=== PATIENT | female | born 1990 | race Caucasian/White ===

== ENCOUNTER 2020-08-07 15:33 | Outpatient (REF) | payer OTHER, SELFPAY | END 2020-08-07 15:34 | disposition home or self-care (01) | LOC: HO.LAB 15:33 | PROVIDERS: PCP Internal Medicine; Visit Provider Internal Medicine | DX: Z20.828 Contact with and (suspected) exposure to other viral communicable diseases (principal) | CPT/HCPCS: 36415; C9803; U0003 ==

== ENCOUNTER 2020-08-21 15:51 | Emergency (ER) | payer OTHER, SELFPAY ==
[2020-08-21 16:22] VITALS: BP 127/81; PULSE 92; RESP 22; TEMP 35.9; O2SAT 100; BMI 25.7
--- NOTE | 2020-08-21 16:59 | XR_ITS ---
EXAMINATION: PORTABLE CHEST 1 VIEW CLINICAL INFORMATION: cough . COMPARISON: 03/28/2020. TECHNIQUE: Portable frontal view of the chest was obtained. FINDINGS: The lungs are well expanded. No focal infiltrate, effusion, edema, or pneumothorax. Cardiac and mediastinal silhouettes are within normal limits for technique. No acute bony abnormality seen. XR/XR chest 1V IMPRESSION: No evidence of acute disease.
--- NOTE | 2020-08-21 16:59 | ED_ITS ---
HPI - General Adult General Chief complaint: Dyspnea Stated complaint: Difficulty breathing Time Seen by Provider: 08/21/20 16:38 Source: patient Mode of arrival: ambulatory Limitations: no limitations History of Present Illness HPI narrative: Patient comes emergency room complaining of anxiety. Patient states that when she gets anxious, she gets short of breath. Patient states making her anxious is that she was diagnosed with COVID and she still having cough. Patient denies headache, no shortness of breath except when she feels anxious, no fever, no body aches. Patient's and children are recovering from COVID as well. complaint: Anxiety Related Data Previous Rx's Medication Instructions Recorded albuterol sulfate 90 mcg/actuation 1 inh INHALATION QID PRN #8.5 g 08/17/20 aerosol inhaler azithromycin 250 mg tablet 250 mg PO DAILY 5 Days #5 tab 08/17/20 Allergies Allergy/AdvReac Type Severity Reaction Status Date / Time No Known Allergies [NKA] Allergy Unknown N Verified 08/21/20 16:22 Review of Systems Review of Systems: Constitutional : No Weight loss, No Fever, No Chills, No Night Sweats, No Fatigue, No Malaise ENT/Mouth : No Hearing loss, No Ear Pain, No Nasal Congestion, No Sinus Pain, No Hoarseness, No sore throat, No Rhinorrhea, No Swallowing Difficulty Eyes: No Eye Pain, No Swelling, No Redness, No Foreign Body, No Discharge, No Vision Changes Cardiovascular : No Chest Pain, No SOB, No Dyspnea on Exertion, No Orthopnea, No Edema, No Palpitations Respiratory : Complaining of dry Cough, No Sputum, No Wheezing, No Smoke Exposure, No Dyspnea Gastrointestinal : No Nausea, No Vomiting, No Diarrhea, No Constipation, No abdominal Pain, No Hematochezia, No Melena Genitourinary : no irregular bleeding, No Dysuria, No Urinary Frequency, No Hematuria, No Urinary Incontinence, No Urgency, No Flank Pain, No Urinary Flow Changes, No Hesitancy Musculoskeletal : No joint pain, No Myalgias, No Joint Swelling Skin : No Skin Lesions, No rash Neuro : No Weakness, No Numbness, No Paresthesias, No Loss of Consciousness, No Dizziness, No Headache Psych : Playing of anxiety , No Depression, No SI/HI/AH/VH, No Social Issues, Heme/Lymph: No Bruising, No Bleeding,No Lymphadenopathy Endocrine : No Polyuria, No Polydipsia, No Temperature Intolerance [facility] Past Medical History Medical History Healthy adult Social History Social History Advance Directives: No Advance Directives Information Provided: No Physical Exam Vital Signs: Vital Signs: Last Vital Signs Temp 96.6 F L 08/21/20 16:22 Pulse 92 08/21/20 16:22 Resp 22 H 08/21/20 16:22 BP 127/81 08/21/20 16:22 Pulse Ox 100 08/21/20 16:22 Body Mass Index 25.7 Appearance: Alert. Oriented X3. No acute distress. Eyes: Pupils equal, round and reactive to light. ENT: Pharynx normal. Neck: Normal inspection. Neck supple. No lymph nodes noted. No crepitus CVS: Normal heart rate and rhythm. Pulses normal. Normal S1 and S2 Respiratory: No respiratory distress. Breath sounds normal. No Wheezing. No rales Abdomen: Soft and nontender. No rigidity. No distention. good BS x4 Skin: Skin warm and dry. Normal skin color. Normal skin turgor. Extremities: No lower extremity edema. No lower extremity edema. No Lacerations. No Rash Neuro: Oriented X 3. No motor deficit. No sensory deficit. Moving all extermities. No slurred speech. Course Course Course Narrative: Patient's x-rays are normal, patient COVID results pending. Discharge Plan Discharge Clinical Impression: Cough Patient Disposition: Home, Self-Care Instructions: Acute Cough (ED) Additional Instructions: You were tested for COVID-19, if you test positive, you will receive a phone call within 72 hours. You may also signed in to [facility] portal and review results which may be available sooner. Please follow-up with your primary care physician tomorrow. If you have any worsening or new symptoms, please return to the emergency room or call 911 Prescriptions: No Action azithromycin [Zithromax Z-Nicola] 250 mg tablet 250 mg PO DAILY 5 Days Qty: 5 RF: 0 albuterol sulfate [Ventolin HFA] 90 mcg/actuation HFA aerosol inhaler 1 inh inhalation QID PRN (Reason: shortness of breath or wheezing) Qty: 8.5 RF: 1
[2020-08-21 18:19] LABS: COVID-19 Test Positive (Negative)
== END 2020-08-21 18:09 | disposition home or self-care (01) ==
PROVIDERS: Emergency Provider Emergency Medicine; PCP Internal Medicine
DX: R05 Cough (principal); Z86.16 Personal history of COVID-19
CPT/HCPCS: 36415; 71045; 87635; 99283

== ENCOUNTER 2020-09-25 23:49 | Emergency (ER) | payer OTHER, SELFPAY | END 2020-09-26 00:48 | disposition left against medical advice (07) | PROVIDERS: Emergency Provider Emergency Medicine; PCP Internal Medicine | DX: T14.90XA Injury, unspecified, initial encounter (principal); X58.XXXA Exposure to other specified factors, initial encounter; Y93.9 Activity, unspecified; Y92.9 Unspecified place or not applicable; Y99.9 Unspecified external cause status ==

== ENCOUNTER 2021-05-06 10:43 | Outpatient (REF) | payer OTHER, SELFPAY ==
[2021-05-06 11:14] LABS: COVID-19 Test Negative (Negative)
== END 2021-05-06 10:44 | disposition home or self-care (01) ==
LOC: HO.LAB 10:43
PROVIDERS: PCP Internal Medicine; Visit Provider Internal Medicine
DX: Z20.822 Contact with and (suspected) exposure to COVID-19 (principal)
CPT/HCPCS: 36415; 87635

== ENCOUNTER 2021-08-22 19:33 | Emergency (ER) | payer OTHER, SELFPAY ==
--- NOTE | 2021-08-22 | ECG_ITS ---
Test Reason : CHEST PAIN Blood Pressure : / mmHG Vent. Rate : 085 BPM Atrial Rate : 085 BPM P-R Int : 184 ms QRS Dur : 094 ms QT Int : 356 ms P-R-T Axes : 048 -11 022 degrees QTc Int : 423 ms Normal sinus rhythm Normal ECG When compared with ECG of 28-MAR-2020 00:00, No significant change was found Referred By: Osei Morales Electronically Signed By:Kristofer Vaz
--- NOTE | ~2021-08-22 | XR_ITS ---
EXAMINATION: XR CHEST CLINICAL INFORMATION: Chest pain COMPARISON: Chest 08/21/2020 TECHNIQUE: 2 views of the chest were obtained. FINDINGS: No significant abnormality is noted involving the heart, lungs, mediastinum, bony thorax or soft tissues. XR/XR chest 2V IMPRESSION: Unremarkable chest examination.
== END 2021-08-22 21:40 | disposition left against medical advice (07) ==
LOC: HO.ED 20:54
PROVIDERS: Emergency Provider Emergency Medicine; PCP Orthopaedic Surgery
DX: R07.89 Other chest pain (principal); R20.0 Anesthesia of skin
CPT/HCPCS: 71046; 93005; 99281; 99283

== ENCOUNTER 2022-03-19 13:44 | Outpatient (REF) | payer OTHER, SELFPAY ==
--- NOTE | ~2022-03-19 | XR_ITS ---
EXAMINATION: LUMBAR SPINE. BILATERAL HIPS. CLINICAL INFORMATION: Dorsalgia. COMPARISON: None TECHNIQUE: Dorsal spine 3 views. 2 views each hip. FINDINGS: Lumbar spine: There is mild straightening of lumbar lordosis. The vertebral heights, alignment and disc heights are normal. No visible acute fracture, dislocation or lytic process seen. SI joints are symmetrical and normal. Left hip: The left hip joint space is maintained normal. There is no bony erosive changes. No acute fracture or dislocation. The soft tissues are normal. Right hip: The right hip joint space is maintained normal. No bony erosive changes, fracture or loose bodies. The soft tissues are normal. XR/XR hip RT min 2V IMPRESSION: Remarkable lumbar spine exam. Unremarkable bilateral hip exam..
--- NOTE | ~2022-03-19 | XR_ITS ---
EXAMINATION: LUMBAR SPINE. BILATERAL HIPS. CLINICAL INFORMATION: Dorsalgia. COMPARISON: None TECHNIQUE: Dorsal spine 3 views. 2 views each hip. FINDINGS: Lumbar spine: There is mild straightening of lumbar lordosis. The vertebral heights, alignment and disc heights are normal. No visible acute fracture, dislocation or lytic process seen. SI joints are symmetrical and normal. Left hip: The left hip joint space is maintained normal. There is no bony erosive changes. No acute fracture or dislocation. The soft tissues are normal. Right hip: The right hip joint space is maintained normal. No bony erosive changes, fracture or loose bodies. The soft tissues are normal. XR/XR lumbar spine 2-3V IMPRESSION: Remarkable lumbar spine exam. Unremarkable bilateral hip exam..
--- NOTE | ~2022-03-19 | XR_ITS ---
EXAMINATION: LUMBAR SPINE. BILATERAL HIPS. CLINICAL INFORMATION: Dorsalgia. COMPARISON: None TECHNIQUE: Dorsal spine 3 views. 2 views each hip. FINDINGS: Lumbar spine: There is mild straightening of lumbar lordosis. The vertebral heights, alignment and disc heights are normal. No visible acute fracture, dislocation or lytic process seen. SI joints are symmetrical and normal. Left hip: The left hip joint space is maintained normal. There is no bony erosive changes. No acute fracture or dislocation. The soft tissues are normal. Right hip: The right hip joint space is maintained normal. No bony erosive changes, fracture or loose bodies. The soft tissues are normal. XR/XR hip LT min 2V IMPRESSION: Remarkable lumbar spine exam. Unremarkable bilateral hip exam..
[2022-03-19 14:02] LABS: MANUAL DIFF FLAG NO
[2022-03-19 15:49] LABS: Basophils Percent Auto 0.5 % (0-2); Eosinophils Absolute Auto 0.1 X10*3/uL (0.0-0.4); Eosinophils Percent Auto 1.8 % (0-4); Hematocrit 41.1 % (37.0-47.0); Hemoglobin 12.2 g/dl (12.0-16.0); Imm Gran Abs Auto 0.01 X10*3/uL (0.00-0.03); Imm Gran Pct Auto 0.2 % (0.0-0.4); Lymphocytes Absolute Auto 2.1 X10*3/uL (1.2-4.9); Lymphocytes Percent Auto 31.1 % (20-40); Mean Corpuscular HGB Conc 29.7 g/dl (31.0-35.0); Mean Corpuscular Hemoglobin 27.7 pg (27.0-33.0); Mean Corpuscular Volume 93.2 fL (80.0-98.0); Mean Platelet Volume 10.7 fL (9.4-12.3); Monocytes Absolute Auto 0.3 X10*3/uL (0.1-1.2); Monocytes Percent Auto 4.8 % (2-11); Neutrophils Absolute Auto 4.1 x10*3/uL (2.0-8.3); Neutrophils Percent Auto 61.6 % (45-73); Platelet Count 290 X10*3/uL (160-400); Red Blood Count 4.41 X10*6/uL (4.20-5.50); Red Cell Distribution Width 12.8 % (11.0-16.0); White Blood Count 6.6 X10*3/uL (4.8-10.8)
[2022-03-19 16:36] LABS: Alanine Aminotransferase 11 U/L (0-31); Albumin Level 4.3 g/dL (3.5-5.0); Alkaline Phosphatase 98 U/L (39-117); Anion Gap 14 (12-20); Aspartate Amino Transferase 15 U/L (5-31); Bilirubin Total < 0.2 mg/dL (0.0-1.0); Blood Urea Nitrogen 9 mg/dL (9-16); Calcium 9.1 mg/dL (8.4-10.2); Carbon Dioxide 29 mmol/L (22-29); Chloride 102 mmol/L (96-108); Cholesterol 265 mg/dL; Estimated Glomerular Filt Rate > 60; Glucose Fasting 95 mg/dL (60-99); HDL Cholesterol 51 mg/dL; LDL Cholesterol Calculated 199 mg/dl; Potassium 4.5 mmol/L (3.3-5.1); Sodium 140 mmol/L (135-145); Total Protein 7.3 g/dL (6.5-8.0); Triglycerides 75 mg/dL
[2022-03-19 16:54] LABS: Thyroid Stimulating Hormone 1.97 uIU/mL (0.32-4.0)
== END 2022-03-19 13:45 | disposition home or self-care (01) ==
LOC: HO.LAB 13:44
PROVIDERS: PCP Internal Medicine; Visit Provider Internal Medicine
DX: Z00.00 Encounter for general adult medical examination without abnormal findings (principal); M54.9 Dorsalgia, unspecified; M25.551 Pain in right hip; M25.552 Pain in left hip; Z13.0 Encounter for screening for diseases of the blood and blood-forming organs and certain disorders involving the immune mechanism
CPT/HCPCS: 36415; 72100; 73502; 80053; 80061; 84443; 85025

== ENCOUNTER 2024-05-13 13:04 | Outpatient (AMB) | payer OTHER, SELFPAY ==
[2024-05-13 13:05] VITALS: BP 136/78; PULSE 75; O2SAT 98; BMI 39.5
--- NOTE | 2024-05-13 13:05 | A.OFFPC_ITS ---
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 Accompanied by: Self / Same As Patient Allergies No Known Allergies [NKA] Allergy (Unknown, Verified 05/13/24 13:07) N Medication List - Last Reconciled 05/14/24 by Sandip Carias MD levalbuterol tartrate 45 mcg/actuation (Xopenex HFA) 2 puffs inhalation Q4-6H PRN Tobacco use date assessed: 05/13/24 Dental Screening Dental Screen Date: 05/13/24 Did you have a dental visit in the last 12 months?: No Did you have a dental problem in the last 6 months where you did not have access to dental care?: No Was dental information given to patient?: Patient has dentist HPI PE HPI Details under much stress due to homelessness and poor family situation PFSH Medical History Healthy adult Surgical History History of cholecystectomy Family History Mother No problems noted. Father No problems noted. Social History Housing: Homeless Patient Tobacco Use Status: Former Tobacco user Tobacco use type: Cigarette e-Cigarette/Vaping Use: Never Used Second Hand Smoke Exposure: No service: No Current occupational status: employed Current occupational exposures/hazards: No Cognitive needs: No Hearing needs: No Vision needs: Yes Questionnaire PHQ-9 Over the last 2 weeks, how often have you been bothered by any of the following problems? 1. Little interest or pleasure in doing things: several days 2. Feeling down, depressed, or hopeless: more than half the days 3. Trouble falling or staying asleep, or sleeping too much: nearly every day 4. Feeling tired or having little energy: nearly every day 5. Poor appetite or overeating: nearly every day 6. Feeling bad about yourself - or that you are a failure or have let yourself or your family down: more than half the days 7. Trouble concentrating on things, such as reading the newspaper or watching television: more than half the days 8. Moving or speaking so slowly that other people could have noticed. Or the opposite - being so fidgety or restless that you have been moving around a lot more than usual: several days 9. Thoughts that you would be better off or of hurting yourself in some way: several days Total score: 18 Depression Screening Interpretation: Positive Depression Screening Done: Yes 62517 - PHQ-9 Billing: Yes Source: Developed by Drs. Reji Bell, Viktoria Armando, Miguel Crane and colleagues, with an educational leticia from [employer]. Thrive Questionnaire Date Thrive assessed: 05/08/24 I am a: Patient What is your living situation today?: I do not have a steady places to live I am staying at a hotel Within the past 12 months, did the food you bought not last and you didn't have the money to get more?: Often true Within the past 12 months, did you worry whether your food would run out before you got money to buy more?: Often true Do you have trouble paying for medicines?: Yes Do you have trouble getting transportation to medical appointments?: Yes Do you have trouble paying your heating and electricity bill?: Yes Do you have trouble taking care of your child, family member or friend?: No Do you have trouble with day-to-day activities such as bathing, preparing meals, shopping, managing finances, etc.?: Yes Are you currently unemployed and looking for a job?: No Are you interested in more education?: Yes Please select the resources that you would like help with: Housing/Fdc, Food, Paying for medicine, Transportation, Utilities, Daily support and Education Currently or been in a relationship where the following occur: I choose not to answer THRIVE Score: 5 AUDIT C Alcohol Use Questionnaire (AUDIT-C) 1. How often do you have a drink containing alcohol?: Never 2. How many drinks containing alcohol do you have on a typical day when you are drinking?: 1 or 2 3. How often do you have six or more drinks on one occasion?: Never Total Score: 0 Score Reviewed/Action Taken: Yes CISCO-7 AMB Questionnaire CISCO-7 Date CISCO - 7 assessed: 05/13/24 Feeling nervous, anxious, or on edge: 3 = Nearly every day Not being able to stop or control worryin = Nearly every day Worrying too much about different things: 3 = Nearly every day Trouble relaxin = Nearly every day Being so restless that it is hard to sit still: 2 = More than half the days Becoming easily annoyed or irritable: 2 = More than half the days Feeling afraid as if something awful might happen: 3 = Nearly every day Total CISCO-7 score (0-4 normal; 5-9 mild; 10-14 moderate; 15-21 severe): 19 Source: Developed by Drs. Reji Bell, Viktoria Armando, Miguel Crane and colleagues, with an educational leticia from [employer]. CISCO-7 Assessment Billing CISCO-7 Assessment Tool: CISCO-7 Assessment 19333 Review of Systems Const Denies chills, Denies fatigue, Denies headache(s) and Denies weight loss Eyes Denies change in vision, Denies diplopia and Denies eye pain ENT Denies vertigo, Denies dizziness, Denies headache(s) and Denies nasal discharge Card Denies chest pain, Denies rapid heart rate and Denies dyspnea on exertion Resp Denies chest congestion, Denies cough, Denies pain with cough and Denies dyspnea on exertion GI Denies abdominal pain, Denies hematochezia and Denies change in bowel habits Musc Denies myalgias, Denies arthralgias and Denies joint swelling Skin/Breast Denies lesions and Denies unusual bruising Neuro Denies vertigo, Denies dizziness, Denies headache(s) and Denies focal weakness Endo Denies fatigue Physical exam (Primary Care) Vital Signs: Last Vital Signs Pulse 75 05/13/24 13:05 BP 136/78 05/13/24 13:05 Pulse Ox 98 05/13/24 13:05 Oxygen Delivery Method Room Air 05/13/24 13:05 BMI result Body Mass Index 39.5 Tobacco/Smoking Status: Tobacco use Status Tobacco use date assessed 05/13/24 05/13/24 13:12 Patient Tobacco Use Status Former Tobacco user 05/13/24 13:12 Tobacco use type Cigarette 05/13/24 13:12 e-Cigarette/Vaping Use Never Used 05/13/24 13:12 PHQ-9: PHQ-9 Score PHQ-9: Total score 18 05/13/24 13:53 Depression Screening Interpretation: Positive Thrive Assessment: Date of Thrive Assessment Date Thrive assessed 05/08/24 05/13/24 13:12 Currently or been in a relationship where the following occur: I choose not to answer Const General: cooperative, healthy appearing and no acute distress Orientation/consciousness: oriented to person, oriented to place and oriented to time HENMT Head: Yes normal to inspection, Yes normocephalic and Yes atraumatic Mouth: Normal oral and palatal mucosa present and tongue normal Throat: Yes posterior oropharynx normal and Yes uvula midline Eyes General: appearance normal, both eyes and all related structures Neck Neck: Yes normal visual inspection, Yes full ROM and Yes no lymphadenopathy Thyroid: Thyroid normal Carotids: normal carotid upstroke Chest Chest palpation & inspection: normal inspection of the chest Resp Effort & Inspection: normal respiratory effort and able to speak in complete sentences Auscultation: clear to auscultation bilaterally Cardio Jugular venous distension: no JVD Palpation: normal PMI Rate: regular rate Rhythm: regular rhythm Heart sounds: S1 normal heart sound present and S2 normal heart sound present GI Inspection: Yes normal to inspection Palpation (GI): Soft to palpation and No hepatosplenomegaly present Auscultation: normal bowel sounds General: Yes no CVA tenderness Back/Spine/Pelvis Back: no CVA tenderness Skin General skin exam: no rashes or lesions noted Neuro General: oriented to person, oriented to place and oriented to time Extrem General: Yes normal to inspection and Yes full ROM Coding Level of Care Code Est Pt Prev Care 18-39y(05685) Diagnoses Physical exam Z00.00 Depression F32.A Homelessness Z59.00 Additional Codes CISCO-7 Assessment Billing - CISCO-7 Assessment Tool: CISCO-7 Assessment 90113 ([id number]) Assessment & Plan Assessment & Plan (1) Physical exam: Code(s): Z00.00 - Encounter for general adult medical examination without abnormal findings Category: Medical Plan: do labs (2) Depression: Code(s): F32.A - Depression, unspecified Category: Medical Plan: known problem (3) Homelessness: Code(s): Z59.00 - Homelessness unspecified Category: Social Hx Plan: referred to navigator and [facility] Orders: Orders Comprehensive [place]. Panel Fast 05/13/24 Z13.9 - Encounter for screening, unspecified Complete Blood Count Auto Diff 05/13/24 Z13.0 - Encounter for screening for diseases of the blood and blood-forming organs and certain disorders involving the immune mechanism Thyroid Stimulating Hormone 05/13/24 Z13.29 - Encounter for screening for other suspected endocrine disorder Lipid Panel 05/13/24 Z13.220 - Encounter for screening for lipoid disorders Referrals Counseling Referral F32.A - Depression, unspecified, Z59.00 - Homelessness unspecified
== END 2024-05-13 14:39 | disposition home or self-care (01) ==
PROVIDERS: PCP Internal Medicine; Visit Provider Internal Medicine
DX: Z00.00 Encounter for general adult medical examination without abnormal findings (principal); F32.A Depression, unspecified; Z59.00 Homelessness unspecified

== ENCOUNTER → 2024-05-13 13:04 | Outpatient (BNVA) | payer OTHER, SELFPAY | PROVIDERS: PCP Internal Medicine; Visit Provider Internal Medicine | DX: Z00.00 Encounter for general adult medical examination without abnormal findings (principal); F32.A Depression, unspecified; Z59.00 Homelessness unspecified | CPT/HCPCS: 96127; 99395 ==

== ENCOUNTER → 2024-05-14 09:54 | Outpatient (BNVA) | payer OTHER, SELFPAY | PROVIDERS: PCP Internal Medicine ==

== ENCOUNTER 2024-05-31 16:14 | Outpatient (REF) | payer OTHER, SELFPAY ==
[2024-05-31 16:28] LABS: MANUAL DIFF FLAG NO
[2024-05-31 17:01] LABS: Basophils Percent Auto 0.6 % (0-2); Eosinophils Absolute Auto 0.2 X10*3/uL (0.0-0.4); Eosinophils Percent Auto 3.2 % (0-4); Hematocrit 37.8 % (37.0-47.0); Hemoglobin 11.5 g/dl (12.0-16.0); Imm Gran Abs Auto 0.01 X10*3/uL (0.00-0.03); Imm Gran Pct Auto 0.2 % (0.0-0.4); Lymphocytes Percent Auto 37.8 % (20-40); Mean Corpuscular HGB Conc 30.4 g/dl (31.0-35.0); Mean Corpuscular Hemoglobin 28.5 pg (27.0-33.0); Mean Corpuscular Volume 93.8 fL (80.0-98.0); Mean Platelet Volume 10.7 fL (9.4-12.3); Monocytes Absolute Auto 0.4 X10*3/uL (0.1-1.2); Monocytes Percent Auto 7.7 % (2-11); Neutrophils Absolute Auto 2.7 x10*3/uL (2.0-8.3); Neutrophils Percent Auto 50.5 % (45-73); Platelet Count 260 X10*3/uL (160-400); Red Blood Count 4.03 X10*6/uL (4.20-5.50); White Blood Count 5.3 X10*3/uL (4.8-10.8)
[2024-05-31 17:47] LABS: Alanine Aminotransferase 15 U/L (0-31); Albumin Level 4.1 g/dL (3.5-5.0); Alkaline Phosphatase 82 U/L (39-117); Anion Gap 10 (12-20); Aspartate Amino Transferase 21 U/L (5-31); Bilirubin Total 0.3 mg/dL (0.0-1.0); Blood Urea Nitrogen 8 mg/dL (9-16); Calcium 9.8 mg/dL (8.4-10.2); Carbon Dioxide 31 mmol/L (22-29); Chloride 102 mmol/L (96-108); Cholesterol 229 mg/dL (<200); Estimated Glomerular Filt Rate > 60; Glucose Fasting 92 mg/dL (60-99); HDL Cholesterol 46 mg/dL (>40); LDL Cholesterol Calculated 161 mg/dL (<100); Potassium 3.8 mmol/L (3.3-5.1); Sodium 139 mmol/L (135-145); Total Protein 7.1 g/dL (6.5-8.0); Triglycerides 113 mg/dL (<150)
[2024-05-31 18:02] LABS: Thyroid Stimulating Hormone 0.78 uIU/mL (0.32-4.0)
== END 2024-05-31 16:15 | disposition home or self-care (01) ==
LOC: HO.LAB 16:14
PROVIDERS: PCP Internal Medicine; Visit Provider Internal Medicine
DX: Z13.29 Encounter for screening for other suspected endocrine disorder (principal); Z13.220 Encounter for screening for lipoid disorders; Z13.0 Encounter for screening for diseases of the blood and blood-forming organs and certain disorders involving the immune mechanism
CPT/HCPCS: 36415; 80053; 80061; 84443; 85025

== ENCOUNTER 2024-06-01 14:05 | Outpatient (AMB) | payer OTHER, SELFPAY ==
--- NOTE | 2024-06-01 14:15 | MHC.PC.OV ---
Vital Signs 06/01/24 14:17 Height 5 ft 3 in Weight 224 lb 4 oz BMI 39.7 BP 124/64 Blood Pressure Location Lt brachial Position Sitting Pulse 76 Pulse Source Pulse Oximeter Pulse Oximetry (%) 98 Oxygen Delivery Method Room Air Intake Visit Reasons: referral to pain management Intake Note: Patient is here to follow up on referral to pain management and lab results. Pt decline flu shot today. 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 Accompanied by: Self / Same As Patient Allergies No Known Allergies [NKA] Allergy (Unknown, Verified 06/01/24 14:16) N Medication List - Last Reconciled 06/03/24 by Sandip Carias MD levalbuterol tartrate 45 mcg/actuation (Xopenex HFA) 2 puffs inhalation Q4-6H PRN Tobacco use date assessed: 06/01/24 Dental Screening Dental Screen Date: 05/13/24 HPI referral to pain management HPI Details low back pain radiating to both legs for a few months gradually worsening [facility] Medical History Healthy adult Surgical History History of cholecystectomy Family History Mother No problems noted. Father No problems noted. Social History (Updated 06/01/24 @ 14:20 by DC Negro) Housing: Homeless Patient Tobacco Use Status: Former Tobacco user Tobacco use type: Cigarette e-Cigarette/Vaping Use: Currently Using Frequency of e-Cigarette/Vaping Use: Daily Second Hand Smoke Exposure: No service: No Current occupational status: employed Current occupational exposures/hazards: No Cognitive needs: No Hearing needs: No Vision needs: Yes Questionnaire Thrive Questionnaire Date Thrive assessed: 05/08/24 I am a: Patient What is your living situation today?: I do not have a steady places to live I am staying at a hotel Within the past 12 months, did the food you bought not last and you didn't have the money to get more?: Often true Within the past 12 months, did you worry whether your food would run out before you got money to buy more?: Often true Do you have trouble paying for medicines?: Yes Do you have trouble getting transportation to medical appointments?: Yes Do you have trouble paying your heating and electricity bill?: Yes Do you have trouble taking care of your child, family member or friend?: No Do you have trouble with day-to-day activities such as bathing, preparing meals, shopping, managing finances, etc.?: Yes Are you currently unemployed and looking for a job?: No Are you interested in more education?: Yes Currently or been in a relationship where the following occur: I choose not to answer THRIVE Score: 5 CISCO-7 AMB Questionnaire CISCO-7 Date CISCO - 7 assessed: 05/13/24 Source: Developed by Drs. Reji Bell, Viktoria Armando, Miguel Crane and colleagues, with an educational leticia from [employer]. Review of Systems Const Denies chills, Denies fatigue, Denies headache(s) and Denies weight loss Eyes Denies change in vision, Denies diplopia and Denies eye pain ENT Denies vertigo, Denies dizziness, Denies headache(s) and Denies nasal discharge Card Denies chest pain, Denies rapid heart rate and Denies dyspnea on exertion Resp Denies chest congestion, Denies cough, Denies pain with cough and Denies dyspnea on exertion GI Denies abdominal pain, Denies hematochezia and Denies change in bowel habits Musc Denies myalgias, Denies arthralgias and Denies joint swelling Skin/Breast Denies lesions and Denies unusual bruising Neuro Denies vertigo, Denies dizziness, Denies headache(s) and Denies focal weakness Endo Denies fatigue Physical exam (Primary Care) Vital Signs: Last Vital Signs Pulse 76 06/01/24 14:17 BP 124/64 06/01/24 14:17 Pulse Ox 98 06/01/24 14:17 Oxygen Delivery Method Room Air 06/01/24 14:17 BMI result Body Mass Index 39.7 Tobacco/Smoking Status: Tobacco use Status Tobacco use date assessed 06/01/24 06/01/24 14:21 Patient Tobacco Use Status Former Tobacco user 06/01/24 14:21 Tobacco use type Cigarette 06/01/24 14:21 e-Cigarette/Vaping Use Currently Using 06/01/24 14:21 Thrive Assessment: Date of Thrive Assessment Date Thrive assessed 05/08/24 06/01/24 14:21 Currently or been in a relationship where the following occur: I choose not to answer Const General: cooperative, healthy appearing and no acute distress Orientation/consciousness: oriented to person, oriented to place and oriented to time HENMT Head: Yes normal to inspection, Yes normocephalic and Yes atraumatic Mouth: Normal oral and palatal mucosa present and tongue normal Throat: Yes posterior oropharynx normal and Yes uvula midline Eyes General: appearance normal, both eyes and all related structures Neck Neck: Yes normal visual inspection, Yes full ROM and Yes no lymphadenopathy Thyroid: Thyroid normal Carotids: normal carotid upstroke Chest Chest palpation & inspection: normal inspection of the chest Resp Effort & Inspection: normal respiratory effort and able to speak in complete sentences Auscultation: clear to auscultation bilaterally Cardio Jugular venous distension: no JVD Palpation: normal PMI Rate: regular rate Rhythm: regular rhythm Heart sounds: S1 normal heart sound present and S2 normal heart sound present GI Inspection: Yes normal to inspection Palpation (GI): Soft to palpation and No hepatosplenomegaly present Auscultation: normal bowel sounds General: Yes no CVA tenderness Back/Spine/Pelvis Back: no CVA tenderness Skin General skin exam: no rashes or lesions noted Neuro General: oriented to person, oriented to place and oriented to time Extrem General: Yes normal to inspection and Yes full ROM Coding Level of Care Code Est Pt Level 3 (60958) Diagnoses Low back pain M54.50 Assessment & Plan Assessment & Plan (1) Low back pain: Code(s): M54.50 - Low back pain, unspecified Category: Medical Plan: LS spine xr not revealing; mri ordered Orders: Orders MR lumbar spine wo con Today M54.50 - Low back pain, unspecified
[2024-06-01 14:17] VITALS: BP 124/64; PULSE 76; O2SAT 98; BMI 39.7
== END 2024-06-01 15:38 | disposition home or self-care (01) ==
LOC: HO.HMCH 14:06
PROVIDERS: PCP Internal Medicine; Visit Provider Internal Medicine
DX: M54.50 Low back pain, unspecified (principal)

== ENCOUNTER → 2024-06-01 14:05 | Outpatient (BNVA) | payer OTHER, SELFPAY | PROVIDERS: PCP Internal Medicine; Visit Provider Internal Medicine | DX: M54.50 Low back pain, unspecified (principal) | CPT/HCPCS: 99212 ==

== ENCOUNTER → 2024-06-03 11:14 | Outpatient (BNVA) | payer OTHER, SELFPAY | PROVIDERS: PCP Internal Medicine ==

== ENCOUNTER 2024-10-13 14:13 | Outpatient (AMB) | payer OTHER, SELFPAY ==
[2024-10-13 14:17] VITALS: BP 112/80; PULSE 56; O2SAT 98; BMI 40.6
--- NOTE | 2024-10-13 14:17 | A.OFFPC_ITS ---
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 Accompanied by: Self / Same As Patient Allergies No Known Allergies [NKA] Allergy (Unknown, Verified 10/13/24 14:17) N Medication List - Last Reconciled 10/14/24 by Sandip Carias MD levalbuterol tartrate 45 mcg/actuation (Xopenex HFA) 2 puffs inhalation Q4-6H PRN Tobacco use date assessed: 10/13/24 Dental Screening Dental Screen Date: 10/13/24 Did you have a dental visit in the last 12 months?: Yes Did you have a dental problem in the last 6 months where you did not have access to dental care?: No Was dental information given to patient?: Patient has dentist HPI follow up/pain management referral HPI Details multiple joint pains; 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 Father No problems noted. Social History Housing: Homeless Patient Tobacco Use Status: Former Tobacco user Tobacco use type: Cigarette e-Cigarette/Vaping Use: Currently Using Second Hand Smoke Exposure: No service: No Current occupational status: employed Current occupational exposures/hazards: No Cognitive needs: No Hearing needs: No Vision needs: Yes Questionnaire PHQ-9 Over the last 2 weeks, how often have you been bothered by any of the following problems? 1. Little interest or pleasure in doing things: several days 2. Feeling down, depressed, or hopeless: more than half the days 3. Trouble falling or staying asleep, or sleeping too much: nearly every day 4. Feeling tired or having little energy: nearly every day 5. Poor appetite or overeating: nearly every day 6. Feeling bad about yourself - or that you are a failure or have let yourself or your family down: more than half the days 7. Trouble concentrating on things, such as reading the newspaper or watching te levision: more than half the days 8. Moving or speaking so slowly that other people could have noticed. Or the opposite - being so fidgety or restless that you have been moving around a lot more than usual: several days 9. Thoughts that you would be better off or of hurting yourself in some way: several days Total score: 18 Depression Screening Interpretation: Positive Depression Screening Done: Yes 93998 - PHQ-9 Billing: Yes Source: Developed by Drs. Reji Bell, Viktoria Armando, Miguel Crane and colleagues, with an educational leticia from [employer]. Thrive Questionnaire Date Thrive assessed: 10/13/24 I am a: Patient What is your living situation today?: I have a steady place to live Within the past 12 months, did the food you bought not last and you didn't have the money to get more?: Never true Within the past 12 months, did you worry whether your food would run out before you got money to buy more?: Never true Do you have trouble paying for medicines?: No Do you have trouble getting transportation to medical appointments?: No Do you have trouble paying your heating and electricity bill?: No Do you have trouble taking care of your child, family member or friend?: No Do you have trouble with day-to-day activities such as bathing, preparing meals, shopping, managing finances, etc.?: No Are you currently unemployed and looking for a job?: No Are you interested in more education?: No Please select the resources that you would like help with: None Currently or been in a relationship where the following occur: No concerns reported THRIVE Score: 0 AUDIT C Alcohol Use Questionnaire (AUDIT-C) 1. How often do you have a drink containing alcohol?: Never 2. How many drinks containing alcohol do you have on a typical day when you are drinking?: 1 or 2 3. How often do you have six or more drinks on one occasion?: Never Total Score: 0 Score Reviewed/Action Taken: Yes CISCO-7 AMB Questionnaire CISCO-7 Date CISCO - 7 assessed: 10/13/24 Feeling nervous, anxious, or on edge: 0 = Not at all Not being able to stop or control worryin = Not at all Worrying too much about different things: 0 = Not at all Trouble relaxin = Not at all Being so restless that it is hard to sit still: 0 = Not at all Becoming easily annoyed or irritable: 0 = Not at all Feeling afraid as if something awful might happen: 0 = Not at all Total CISCO-7 score (0-4 normal; 5-9 mild; 10-14 moderate; 15-21 severe): 0 Source: Developed by Drs. Reji Bell, Viktoria Armando, Miguel Crane and colleagues, with an educational leticia from [employer]. Review of Systems Const Denies chills, Denies headache(s) and Denies weight loss ENT Denies headache(s) Card Denies chest pain, Denies syncope, Denies irregular heart rhythm and Denies dyspnea Resp Denies chest congestion, Denies cough and Denies dyspnea GI Denies abdominal pain, Denies change in stool character, Denies nausea and Denies vomiting Musc Denies deformity and Denies joint swelling Neuro Denies syncope and Denies headache(s) Physical exam (Primary Care) Vital Signs: Last Vital Signs Pulse 56 10/13/24 14:17 BP 112/80 10/13/24 14:17 Pulse Ox 98 10/13/24 14:17 Oxygen Delivery Method Room Air 10/13/24 14:17 BMI result Body Mass Index 40.6 Tobacco/Smoking Status: Tobacco use Status Tobacco use date assessed 10/13/24 10/13/24 14:23 Patient Tobacco Use Status Former Tobacco user 10/13/24 14:23 Tobacco use type Cigarette 10/13/24 14:23 e-Cigarette/Vaping Use Currently Using 10/13/24 14:23 PHQ-9: PHQ-9 Score PHQ-9: Total score 18 10/13/24 14:23 Depression Screening Interpretation: Positive Thrive Assessment: Date of Thrive Assessment Date Thrive assessed 10/13/24 10/13/24 14:23 Currently or been in a relationship where the following occur: No concerns reported Const General: cooperative, comfortable, no acute distress and alert Neck Neck: Yes no lymphadenopathy Thyroid: Thyroid normal Resp Effort & Inspection: normal respiratory effort Auscultation: clear to auscultation bilaterally Percussion: percussion normal Cardio Jugular venous distension: no JVD Palpation: normal PMI Rate: regular rate Rhythm: regular rhythm Heart sounds: S1 normal heart sound present and S2 normal heart sound present GI Inspection: Yes normal to inspection Palpation (GI): No hepatosplenomegaly present Skin General skin exam: no rashes or lesions noted Extrem General: Yes no clubbing, cyanosis or edema Coding Level of Care Code Est Pt Level 3 (04959) Diagnoses Diffuse arthralgia M25.50 Additional Codes PHQ-9 - 98919 - PHQ-9 Billing: Yes ([id number]) Assessment & Plan Assessment & Plan (1) Diffuse arthralgia: Code(s): M25.50 - Pain in unspecified joint Category: Medical Plan: referred Orders: Referrals Rheumatology Referral M25.50 - Pain in unspecified joint
== END 2024-10-13 15:04 | disposition home or self-care (01) ==
LOC: HO.HMCH 14:14
PROVIDERS: PCP Internal Medicine; Visit Provider Internal Medicine
DX: M25.50 Pain in unspecified joint (principal)

== ENCOUNTER → 2024-10-13 14:13 | Outpatient (BNVA) | payer OTHER, SELFPAY | PROVIDERS: PCP Internal Medicine; Visit Provider Internal Medicine | DX: M25.50 Pain in unspecified joint (principal) | CPT/HCPCS: 96127; 99212 ==

== ENCOUNTER 2024-10-22 15:24 | Outpatient (AMB) | payer OTHER, SELFPAY ==
--- NOTE | 2024-10-22 15:46 | A.OFFPC_ITS ---
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 Accompanied by: Self / Same As Patient Allergies No Known Allergies [NKA] Allergy (Unknown, Verified 10/22/24 16:23) N Medication List - Last Reconciled 10/22/24 by Amina Clark PA-C cyclobenzaprine 10 mg PO Q8H docusate sodium (Colace) 100 mg PO BID levalbuterol tartrate 45 mcg/actuation (Xopenex HFA) 2 puffs inhalation Q4-6H PRN meloxicam 15 mg PO DAILY oxycodone 10 mg PO Q6H PRN polyethylene glycol 3350 (Miralax) 17 grams PO BID Tobacco use date assessed: 10/13/24 Dental Screening Dental Screen Date: 10/13/24 [facility] Medical History Right hip pain Coccyx pain Fall Obesity Asthma Healthy adult Surgical History History of cholecystectomy Family History Mother No problems noted. Father No problems noted. Social History Housing: Homeless Patient Tobacco Use Status: Former Tobacco user Tobacco use type: Cigarette e-Cigarette/Vaping Use: Currently Using Second Hand Smoke Exposure: No service: No Current occupational status: employed Current occupational exposures/hazards: No Cognitive needs: No Hearing needs: No Vision needs: Yes Questionnaire Thrive Questionnaire Date Thrive assessed: 10/13/24 CISCO-7 AMB Questionnaire CISCO-7 Date CISCO - 7 assessed: 10/13/24 Source: Developed by Drs. Reji Bell, Viktoria Armando, Miguel Crane and colleagues, with an educational leticia from [employer]. Physical exam (Primary Care) Vital Signs: Last Vital Signs Temp 97.3 F 10/22/24 15:51 Pulse 68 10/22/24 15:51 BP 142/92 H 10/22/24 15:51 Pulse Ox 99 10/22/24 15:51 Oxygen Delivery Method Room Air 10/22/24 15:51 BMI result Body Mass Index 40.3 Tobacco/Smoking Status: Tobacco use Status Tobacco use date assessed 10/13/24 10/22/24 15:47 Patient Tobacco Use Status Former Tobacco user 10/22/24 15:47 Tobacco use type Cigarette 10/22/24 15:47 e-Cigarette/Vaping Use Currently Using 10/22/24 15:47 Thrive Assessment: Date of Thrive Assessment Date Thrive assessed 10/13/24 10/22/24 15:47 Coding Level of Care Code Est Pt Level 4 (36626) Complex EM visit Add On G2211 Diagnoses Fall W19.XXXA Low back pain M54.50 Coccyx pain M53.3 Right hip pain M25.551 Assessment & Plan Assessment & Plan (1) Fall: Code(s): W19.XXXA - Unspecified fall, initial encounter Category: Medical Plan: Patient is status post fall was seen at [facility] and had imaging of lumbar spine, hips, pelvis, humerus of right side, tib-fib of right side and femur right side which were negative for any acute processes. She was sent home with 10 mg oxycodone a proximally 14 tablets although she reports when she takes the oxycodone it does relieve her pain although she only has a few tablets left. She would like reimaging. She has a normal neuro exam. Will order x- ray of lumbar spine, coccyx spine and right hip and pelvis to re-evaluate. Will give her repeat oxycodone prescription of 30 tablets I explained to her that she will have to take 1 a day or 1 every 8 hours when she is in severe pain and also take meloxicam and Flexeril. Patient understands agrees with this plan. (2) Low back pain: Code(s): M54.50 - Low back pain, unspecified Category: Medical (3) Coccyx pain: Code(s): M53.3 - Sacrococcygeal disorders, not elsewhere classified Category: Medical (4) Right hip pain: Code(s): M25.551 - Pain in right hip Category: Medical Plan Plan Patient was informed and verbally consented to the use of an ambient scribe for clinic note documentation during this visit. 1. Sciatica Managed exacerbated sciatica with anti-inflammatory medications, monitoring impact over time. 2. Coccyx Fracture Suspected Considered further imaging to evaluate the possibility of a coccyx fracture following initial negative results. 3. Hematoma Monitoring post-fall hematoma for changes. Focus on pain management pending further imaging if symptoms persist. 4. Pain Due To Fall Prescribed opioids as interim management for severe pain, emphasizing careful usage. 5. Constipation Narcotic-Related Advised on regular use of stool softeners to address anticipated narcotic- related constipation. Discussion Notes During the visit, we discussed the patient's significant pain following her fall and the role of existing conditions such as sciatica. We emphasized the importance of continued monitoring of her hematoma. We reviewed treatment options, including the use of medications like meloxicam for inflammation and oxycodone for acute pain management, advising of potential side effects, specifically constipation. To prevent constipation from narcotics, I recommended adding Colace and MiraLax. Follow-up X-rays, particularly for the coccyx, were suggested to assess potential fractures missed initially. The patient was instructed on the importance of adhering to the treatment regimen and follow-up plans for continued assessment. Orders: Orders 2 XR hip RT w [id number] Today M25.551 - Pain in right hip, M53.3 - Sacrococcygeal disorders, not elsewhere classified, M54.50 - Low back pain, unspecified, W19.XXXA - Unspecified fall, initial encounter XR sacrum coccyx min 2V Today M53.3 - Sacrococcygeal disorders, not elsewhere classified, M54.50 - Low back pain, unspecified, W19.XXXA - Unspecified fall, initial encounter XR lumbar spine 4V min Today M25.551 - Pain in right hip, M53.3 - Sacrococcygeal disorders, not elsewhere classified, M54.50 - Low back pain, unspecified, W19.XXXA - Unspecified fall, initial encounter Medications: New cyclobenzaprine 10 mg PO Q8H 30 tabs 0RF polyethylene glycol 3350 (Miralax) 17 grams PO BID 100 ea 0RF meloxicam 15 mg PO DAILY 30 tabs 0RF docusate sodium (Colace) 100 mg PO BID 60 caps 0RF Refilled oxycodone Partial Fill upon patient request. 10 mg PO Q6H PRN 30 tabs 0RF pain Patient Instructions: Patient Instructions - Take meloxicam daily as prescribed for inflammation. - Use oxycodone as prescribed for severe pain management. - Consume Colace and MiraLax twice daily to prevent constipation. - Schedule an X-ray for the coccyx to evaluate for potential fracture. - Adhere to medication regimen and report any new or worsening symptoms. - Use a cushion or donut pillow for sitting comfort. Scribe Plan - Not visible on output: History of Present Illness The patient is a 34-year-old female presenting with pain and functional impairment following a fall. The incident occurred on Friday, leading her to seek emergency care at [facility], where imaging was performed which included lumbar spine CT scan, x-ray of hip and pelvis, x-ray of humerus and tib/fib of the right side which were all negative for any acute processes. Findings included a significant hematoma to right buttocks but no initial fracture was identified. Her symptoms include severe pain, which restricts her ability to walk, sit, or lie down. She has a prior history of sciatica and joint pains. Pre-existing sciatica has worsened post-fall, leading to increased discomfort. They have been on a pain management plan of 10 mg of oxycondone q 6 hours, but patient only got 14 tablets, inadequate for managing current pain levels. Concerns about potential coccyx injury were raised given her pain symptoms. Social History - Functional status: Experiencing severe pain limiting mobility and daily activities. Review of Systems - Musculoskeletal: Reports severe pain, difficulty walking, sitting, and laying down. Physical Exam Appearance: Alert. Oriented X3. Appears uncomfortable due to pain. Head: Normal external exam. Normocephalic. Atraumatic. Eyes: Pupils are equal, round, and reactive to light. Extraocular movements intact. Conjunctiva and sclera normal. Eyelids normal. Throat: Pharynx normal. Uvula midline. Moist mucous membranes. Neck: Normal inspection. Neck supple. Full range of motion. Cardiovascular: Normal heart rate and rhythm. Respiratory: No respiratory distress. Painless inspiration. Back: NFull range of motion noted. Bruising and tenderness noted in the Right coccyx area. Skin: Skin warm and dry. Normal skin color. Normal skin turgor. Bruising noted to right coccyx. Extremities: Patient has tenderness to right hip/right coccyx/right buttocks with bruising noted. Patient has full range motion of cervical/thoracic/lumbar/bilateral hips, bilateral knee and bilateral ankle and foot x-rays. No obvious deformities or obvious ligamentous or tendon injuries noted. Patient has a good steady gait. Neuro: Oriented X 3. No motor deficit. No sensory deficit. Reflexes normal. Results - Imaging: Previous X-rays showed no fractures; coccyx fracture remains a concern. - CT Scan: Included but specifics unknown.
[2024-10-22 15:51] VITALS: BP 142/92; PULSE 68; TEMP 36.3; O2SAT 99; BMI 40.3
== END 2024-10-22 16:15 | disposition home or self-care (01) ==
LOC: HO.HMCH 15:25
PROVIDERS: PCP Internal Medicine; Visit Provider Physician Assistant Medical
DX: M54.50 Low back pain, unspecified (principal); W19.XXXA Unspecified fall, initial encounter; M53.3 Sacrococcygeal disorders, not elsewhere classified; M25.551 Pain in right hip

== ENCOUNTER → 2024-10-22 15:24 | Outpatient (BNVA) | payer OTHER, SELFPAY | PROVIDERS: PCP Internal Medicine; Visit Provider Physician Assistant Medical | DX: M54.50 Low back pain, unspecified (principal); M53.3 Sacrococcygeal disorders, not elsewhere classified; M25.551 Pain in right hip; W19.XXXD Unspecified fall, subsequent encounter | CPT/HCPCS: 99212 ==

== ENCOUNTER 2024-10-25 16:42 | Outpatient (REF) | payer OTHER, SELFPAY | END 2024-10-25 16:43 | disposition home or self-care (01) | LOC: HO.XRAY 16:42 | PROVIDERS: PCP Internal Medicine; Visit Provider Physician Assistant Medical | DX: Z13.89 Encounter for screening for other disorder (principal) ==

== ENCOUNTER 2024-11-02 10:34 | Outpatient (AMB) | payer OTHER, SELFPAY ==
[2024-11-02 11:03] VITALS: BP 120/80; PULSE 79; O2SAT 97; BMI 41.0
--- NOTE | 2024-11-02 11:03 | MHC.OFFVIS ---
Vital Signs 11/02/24 11:03 Height 5 ft 3 in Weight 231 lb 11.293 oz BMI 41.0 BP 120/80 Blood Pressure Location Rt brachial Position Sitting Pulse 79 Pulse Source Pulse Oximeter Pulse Oximetry (%) 97 Oxygen Delivery Method Room Air Intake Visit Reasons: joint pain Intake Note: Patient presents today as a new patient, internally referred by Dr. Carias for diffuse arthralgia. Allergies bee stings Allergy (Mild, Uncoded 11/02/24 11:08) Anaphylaxis HPI HPI joint pain: Details: Pain for years is getting progressively worse. She has pain in lower back that radiates to lateral hips causing numbness in leg when she lays on her side. Burning pain keeps her up at night. She fell few weeks ago at home. Unable to put weight on right side. She went to the ER. CT lumbar spine 10/18/2024 did not reveal acute spinal pathology. She also had CT pelvis, and imaging of right femur and wrists that were unremarkable. She has been applying ice daily and using meloxicam 15 mg daily without benefit. She did not have any benefit with cyclobenzaprine and stopped using it. She has pain in her hands. Intermittently. No swelling. No stiffness. Sometimes at night she has locking of her fingers and her feet. Mother and grandmother has fibromyalgia and arthritis. Denies alcohol use. Ex-smoker 6 years ago. 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 Medical history, medication list and labs reviewed in expanse. [facility] Medical History Right hip pain Coccyx pain Fall Obesity Asthma Healthy adult Surgical History History of cholecystectomy Family History Mother No problems noted. Father No problems noted. Social History Housing: Homeless Patient Tobacco Use Status: Former Tobacco user Tobacco use type: Cigarette e-Cigarette/Vaping Use: Currently Using Second Hand Smoke Exposure: No service: No Current occupational status: employed Current occupational exposures/hazards: No Cognitive needs: No Hearing needs: No Vision needs: Yes Review of Systems Const All systems reviewed & are unremarkable except as noted in HPI and below Physical Exam Vital Signs: Last Vital Signs Pulse 79 11/02/24 11:03 BP 120/80 11/02/24 11:03 Pulse Ox 97 11/02/24 11:03 Oxygen Delivery Method Room Air 11/02/24 11:03 BMI result Body Mass Index 41.0 Const Other: General: Comfortable CVS: RRR Respiratory: clear to auscultation bilaterally. Good respiratory effort Skin: No lesions seen. No bruising. MSK: Tender to palpate wrists, MCPs, PIP, IP joints of bilateral hands. No synovitis. Normal range of motion of upper extremity. She has tenderness to palpate lower lumbar spinous process. Tender to palpate right buttocks. She has soft tissue swelling of right buttocks. Normal lumbar flexion. Positive straight leg raising bilateral. Bilateral trochanteric bursa tenderness palpated. Tender to palpate bilateral knees. Normal range of motion of knees. Assessment & Plan Assessment & Plan (1) Multiple joint pain: Comment: Intermittent pain in hands for many years. She has small joint tenderness in her hands. No synovitis noted on exam. I will pursue further workup for early inflammatory arthritis with labs and x-rays. Code(s): M25.50 - Pain in unspecified joint Category: Medical Plan: Labs ordered X-ray of hands and feet ordered (2) Lumbar back pain with radiculopathy affecting lower extremity: Comment: Chronic lower back with bilateral radiculopathy/burning of thighs, exacerbated with fall at home last month. She has positive straight leg raising tests, which is concerning for nerve impingement contributing to her symptoms. I reviewed her CT lumbar spine that she had recently 10/18/2024 at [facility]. Spine alignment is normal. Vertebrae are normal. She also has bilateral trochanteric bursitis but it would not explain her radicular and burning symptoms. Code(s): M54.16 - Radiculopathy, lumbar region Category: Medical Plan: MRI lumbar spine with and without contrast evaluated for spinal cord pathology and nerve impingement contributing to her symptoms. Labs ordered. If kidney function and liver function are normal, I will send prescription for naproxen 375 mg twice a day to take with food, which will replace meloxicam. She will try naproxen 375 mg twice a day for 2 weeks. If she does not find relief in pain, she will call office for prescription for naproxen 500 mg twice a day to take with food. PT ordered I do not prescribe narcotics. I will not be refilling oxycodone prescription. Defer to PCP. Return to clinic in 1-2 months to discuss results (3) Greater trochanteric bursitis of both hips: Code(s): M70.61 - Trochanteric bursitis, right hip; M70.62 - Trochanteric bursitis, left hip Category: Medical Plan: PT ordered Orders: Orders Alanine Aminotransferase Today Z79.60 - oil heaterman (current) use of unspecified immunomodulators and immunosuppressants C Reactive Protein Today M25.50 - Pain in unspecified joint XR hand RT min 3V Today M25.50 - Pain in unspecified joint XR foot RT min 3V Today M25.50 - Pain in unspecified joint MR lumbar spine wo/w con Today M54.16 - Radiculopathy, lumbar region PT Evaluation and Treatment Today M54.16 - Radiculopathy, lumbar region, M70.61 - Trochanteric bursitis, right hip, M70.62 - Trochanteric bursitis, left hip Complete Blood Count Auto Diff Today Z79.60 - oil heaterman (current) use of unspecified immunomodulators and immunosuppressants Aspartate Amino Transferase Today Z79.60 - oil heaterman (current) use of unspecified immunomodulators and immunosuppressants Creatinine Today Z79.60 - longterm (current) use of unspecified immunomodulators and immunosuppressants Erythrocyte Sedimentation Rate Today M25.50 - Pain in unspecified joint XR hand LT min 3V Today M25.50 - Pain in unspecified joint XR foot LT min 3V Today M25.50 - Pain in unspecified joint Coding Level of Care Code New Pt Level 4 (11129) Diagnoses Multiple joint pain M25.50 Lumbar back pain with radiculopathy affecting lower extremity M54.16 Greater trochanteric bursitis of both hips M70.61; M70.62
== END 2024-11-02 12:12 | disposition home or self-care (01) ==
LOC: HO.RHES 10:34
PROVIDERS: PCP Internal Medicine; Visit Provider Internal Medicine Rheumatology
DX: M25.50 Pain in unspecified joint (principal); M54.16 Radiculopathy, lumbar region; M70.61 Trochanteric bursitis, right hip; M70.62 Trochanteric bursitis, left hip
CPT/HCPCS: 99204

== ENCOUNTER → 2024-11-02 10:34 | Outpatient (BNVA) | payer OTHER, SELFPAY | PROVIDERS: PCP Internal Medicine; Visit Provider Internal Medicine Rheumatology | DX: M54.16 Radiculopathy, lumbar region (principal); M70.61 Trochanteric bursitis, right hip; M70.62 Trochanteric bursitis, left hip; M25.50 Pain in unspecified joint; Z79.60 Long term (current) use of unspecified immunomodulators and immunosuppressants | CPT/HCPCS: 99202 ==

== ENCOUNTER → 2024-11-14 18:52 | Outpatient (BNV) | payer OTHER, SELFPAY | PROVIDERS: Visit Provider Radiology Diagnostic Radiology | DX: M54.16 Radiculopathy, lumbar region (principal) | CPT/HCPCS: 72148 ==

== ENCOUNTER 2024-11-14 18:54 | Outpatient (REF) | payer OTHER, SELFPAY ==
--- NOTE | ~2024-11-14 | MR_ITS ---
CLINICAL HISTORY: M54.16 - Radiculopathy, lumbar region MR of the lumbar spine without contrast Comparison: CR/SR - XR LUMBAR SPINE 2-3V - 03/19/22 16:46 EDT Findings: Normal alignment. Modic type 2 change at L5/S1 on the left. Otherwise normal marrow signal. No cord expansion or abnormal signal intensity. The conus medullaris terminates at L1, which is normal. The cauda equina is unremarkable. L1/L2: No disc herniation. No facet joint or ligamentum flavum hypertrophy. No central canal stenosis. No lateral recess stenosis. No foraminal stenosis. L2/L3: No disc herniation. No facet joint or ligamentum flavum hypertrophy. No central canal stenosis. No lateral recess stenosis. No foraminal stenosis. L3/L4: No disc herniation. No facet joint or ligamentum flavum hypertrophy. No central canal stenosis. No lateral recess stenosis. No foraminal stenosis. L4/L5: No disc herniation. Mild facet joint and ligamentum flavum hypertrophy. No central canal stenosis. No right and mild left lateral recess stenosis. No foraminal stenosis. L5/S1: 3 mm left paracentral disc bulge. Mild facet joint and ligamentum flavum hypertrophy. Mild central canal stenosis. No right and mild left lateral recess stenosis. No foraminal stenosis. Impression: No acute findings. Mild lower lumbar degenerative change, detailed above. This document has been electronically signed by: Carey Zhang MD on 11/15/2024 22:07:24
== END 2024-11-14 18:55 | disposition home or self-care (01) ==
LOC: HO.MRI 18:54
PROVIDERS: Visit Provider Internal Medicine Rheumatology
DX: M54.16 Radiculopathy, lumbar region (principal)
CPT/HCPCS: 72148

== ENCOUNTER 2024-11-22 13:41 | Emergency (ER) | payer OTHER, SELFPAY ==
[2024-11-22 13:58] VITALS: BP 122/68; PULSE 72; RESP 18; TEMP 36.6; O2SAT 100; BMI 40.1
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
--- NOTE | 2024-11-22 14:35 | PC.NURSE ---
This RN went into pt room to greet them and the room was empty; HANS states she walked pt into the room personally; bathrooms and CT scan checked and unable to locate pt; dry charge process attendant and HANS made aware
== END 2024-11-22 15:11 | disposition left against medical advice (07) ==
PROVIDERS: Emergency Provider Emergency Medicine
DX: S09.90XA Unspecified injury of head, initial encounter (principal); Y00.XXXA Assault by blunt object, initial encounter; Y93.9 Activity, unspecified; Y92.9 Unspecified place or not applicable; Y99.8 Other external cause status
CPT/HCPCS: 99281

== ENCOUNTER 2024-11-23 10:17 | Outpatient (AMB) | payer OTHER, SELFPAY ==
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
[2024-11-23 10:38] VITALS: BP 130/70; PULSE 70; TEMP 36.2; O2SAT 100; BMI 39.9
== END 2024-11-23 11:43 | disposition home or self-care (01) ==
LOC: HO.HMCH 10:18
DX: S02.2XXA Fracture of nasal bones, initial encounter for closed fracture (principal); Z59.819 Housing instability, housed unspecified; M54.16 Radiculopathy, lumbar region; F32.A Depression, unspecified

== ENCOUNTER → 2024-11-23 10:17 | Outpatient (BNVA) | payer OTHER, SELFPAY | DX: S02.2XXA Fracture of nasal bones, initial encounter for closed fracture (principal); M54.16 Radiculopathy, lumbar region; F32.A Depression, unspecified; X58.XXXA Exposure to other specified factors, initial encounter; Y93.9 Activity, unspecified; Y92.9 Unspecified place or not applicable; Y99.9 Unspecified external cause status; Z59.819 Housing instability, housed unspecified | CPT/HCPCS: 99212 ==

== ENCOUNTER 2025-01-12 01:51 | Emergency (ER) | payer OTHER, SELFPAY ==
--- NOTE | 2025-01-12 | ECG_ITS ---
Test Reason : ABD PAIN Blood Pressure : */* mmHG Vent. Rate : 52 BPM Atrial Rate : 52 BPM P-R Int : 172 ms QRS Dur : 92 ms QT Int : 408 ms P-R-T Axes : 11 -13 21 degrees QTcB Int : 379 ms Sinus bradycardia with sinus arrhythmia Otherwise normal ECG When compared with ECG of 22-Aug-2021 19:51, Vent. rate has decreased by 33 bpm Referred By: Generic ED Physician Electronically Signed By: PURVI GREEN MD
--- NOTE | ~2025-01-12 | MR_ITS ---
EXAMINATION: MRCP. CLINICAL INFORMATION: Right-sided abdominal pain. Recent CT demonstrated intra and extrahepatic biliary ductal dilatation. TECHNIQUE: Axial and coronal T2 haste sequences. Axial and coronal T2 fat-sat haste sequences. Axial in phase and out of phase 3-D sequences. Coronal oblique T2 fat-sat single slice. 3-D space MRCP triggered. COMPARISON: Correlated to CT dated January 12, 2025. FINDINGS: The common bile duct measures 13 mm in maximum diameter and ends abruptly as pencil shaped near the junction with the medial aspect second portion of the duodenum. There is a 4 mm in length between this cut off and the proper duodenal wall. There is mild dilatation of the intrahepatic biliary ductal system. The main pancreatic duct measures 2.3 mm. Liver measures 17 cm. There is no gross drop-off signal within the liver parenchyma. No ascites. Trace of right-sided pleural effusion. No hydronephrosis in either kidney. Spleen measures 8 cm. No peripancreatic fluid collections. No aneurysm, abdominal aorta. MR/MR MRCP IMPRESSION: Stricture of the sphincter of Oddi cannot be entirely excluded. No choledocholithiasis. Electronically signed by: Luther Arnold MD 01/12/2025 11:10 AM EDT
--- NOTE | ~2025-01-12 | CT_ITS ---
EXAMINATION: CT ABDOMEN AND PELVIS WITH CONTRAST CLINICAL INFORMATION: Right-sided abdominal pain. Flank pain. COMPARISON: None available. TECHNIQUE: Multidetector volumetric images were obtained from the superior aspect of the liver through the pubic symphysis following administration 85 mL of Omnipaque 350 intravenous contrast. Sagittal and coronal reformatted images were obtained on the technologist's workstation. Oral contrast: No This CT examination was performed using dose optimization techniques as appropriate, variously including the following: *Automated exposure control *Adjustment of mA and/or kV according to patient size (this includes techniques or standardized protocols for targeted exams where dose is matched to indication/reason for exam; i.e. extremities or head) *Use of iterative reconstruction technique DLP: 751 mGy centimeter. FINDINGS: LUNG BASES: No acute airspace disease or gross pulmonary nodules. LIVER, GALLBLADDER, AND BILIARY TREE: Liver measures 17 cm. No focal mass. Intrahepatic biliary ductal dilatation, mild. Status post cholecystectomy, likely laparoscopic. Common bile duct measures 16 mm with an abrupt cut off at the junction with the second portion of the duodenum. No gross intraluminal calcifications. PANCREAS: No focal mass. No main pancreatic ductal dilatation. No peripancreatic fluid collection. SPLEEN: 7 cm. No focal lesion. ADRENAL GLANDS: No nodular lesions. KIDNEYS AND URETERS: No hydronephrosis. No gross nephrolithiasis. Subcentimeter cyst, left kidney. Normal enhancement pattern, renal cortex, bilaterally. BLADDER: Fluid-filled nearly collapsed. GASTROINTESTINAL TRACT: Appendix is normal in a retrocecal position. Abundant stool, large intestine. No intestinal obstruction pattern. No pneumatosis intestinalis. No gross intestinal wall thickening. No ascites. No pneumoperitoneum. ABDOMINAL WALL: No gross umbilical hernia. Diastases abdominal rectus muscles in the periumbilical region. LYMPH NODES: No specific prominent mesenteric and retroperitoneum. VASCULAR: No aneurysm or dissection, abdominal aorta. PELVIC VISCERA: No gross masses. OSSEOUS STRUCTURES: Spondylosis, mild lower thoracic and L5-S1. Grade 1 retrolisthesis L5-S1 on a degenerative basis. No acute fracture. CT/CT abdomen pelvis w IV con IMPRESSION: Intrahepatic or extrahepatic biliary ductal dilatation with the questionable stricture sphincter of Oddi. Intrinsic lesion cannot be excluded. Hepatomegaly, mild. Fleischner guidelines were followed. Electronically signed by: Luther Arnold MD 01/12/2025 08:35 AM EDT RP
--- NOTE | ~2025-01-12 | XR_ITS ---
CLINICAL HISTORY: RIGHT SIDED PAIN Exam: AP portable chest x-ray. Comparison: None. Findings: Lungs are well inflated. Mediastinal contours, cardiac silhouette, and pulmonary vasculature are within normal limits. No focal areas of consolidation. No rib fracture, pneumothorax, or pleural effusion. Impression: No acute findings. This document has been electronically signed by: Matias Zavaleta MD on 01/12/2025 04:46:28
[2025-01-12 01:55] VITALS: BP 132/63; BP 140/90; PULSE 59; PULSE 64; RESP 19; TEMP 36.4; O2SAT 96; O2SAT 98; BMI 42.1
[2025-01-12 02:14] LABS: MANUAL DIFF FLAG NO
[2025-01-12 02:17] LABS: Basophils Percent Auto 0.3 % (0-2); Eosinophils Absolute Auto 0.2 X10*3/uL (0.0-0.4); Eosinophils Percent Auto 2.8 % (0-4); Hematocrit 38.9 % (37.0-47.0); Hemoglobin 11.9 g/dl (12.0-16.0); Imm Gran Abs Auto 0.01 X10*3/uL (0.00-0.03); Imm Gran Pct Auto 0.1 % (0.0-0.4); Lymphocytes Absolute Auto 3.1 X10*3/uL (1.2-4.9); Lymphocytes Percent Auto 35.5 % (20-40); Mean Corpuscular HGB Conc 30.6 g/dl (31.0-35.0); Mean Corpuscular Hemoglobin 28.1 pg (27.0-33.0); Mean Platelet Volume 10.6 fL (9.4-12.3); Monocytes Absolute Auto 0.7 X10*3/uL (0.1-1.2); Monocytes Percent Auto 8.3 % (2-11); Neutrophils Absolute Auto 4.6 x10*3/uL (2.0-8.3); Platelet Count 297 X10*3/uL (160-400); Red Blood Count 4.23 X10*6/uL (4.20-5.50); Red Cell Distribution Width 13.2 % (11.0-16.0); White Blood Count 8.6 X10*3/uL (4.8-10.8)
[2025-01-12 02:30] LABS: Alanine Aminotransferase 17 U/L (0-31); Albumin Level 4.4 g/dL (3.5-5.0); Alkaline Phosphatase 88 U/L (39-117); Anion Gap 12 (12-20); Aspartate Amino Transferase 18 U/L (5-31); Bilirubin Total 0.2 mg/dL (0.0-1.0); Blood Urea Nitrogen 9 mg/dL (9-16); Calcium 9.5 mg/dL (8.4-10.2); Carbon Dioxide 29 mmol/L (22-29); Chloride 105 mmol/L (96-108); Creatinine Clr Calc Pharmacy 140.8; Estimated Glomerular Filt Rate > 60; Glucose Random 91 mg/dL (60-115); Lipase 12 U/L (8-78); Magnesium 1.9 mg/dL (1.6-2.6); Potassium 3.5 mmol/L (3.3-5.1); Sodium 142 mmol/L (135-145); Total Protein 7.3 g/dL (6.5-8.0)
--- NOTE | 2025-01-12 02:34 | ED_ITS ---
HPI - General Adult General Chief complaint: Abdominal Pain Stated complaint: Acute AB pain, R side Flank pain unbearable Time Seen by Provider: 01/12/25 02:34 History of Present Illness ED Provider: Surjit HARRY narrative: The patient is a 34-year-old female with a history of a cholecystectomy who says that she has had right upper quadrant pain radiating into her right flank for the last 3 days. She says that this pain is similar to pain she experienced prior to her cholecystectomy. She has had associated nausea or vomiting. No definite fevers. She is quite certain she is not . The pain is not pleuritic. She does not feel any shortness of breath associated with this pain. Related Data Previous Rx's ?Medication ?Instructions ?Recorded levalbuterol tartrate 45 2 puff inhalation Q4-6H PRN 08/19/23 mcg/actuation aerosol inhaler shortness of breath #15 grams (Xopenex HFA) docusate sodium 100 mg capsule 100 mg PO BID #60 caps 10/22/24 (Colace) polyethylene glycol 3350 17 17 g PO DAILY #238 grams 10/27/24 gram/dose oral powder meloxicam 15 mg tablet 15 mg PO DAILY #30 tabs 11/18/24 oxycodone 5 mg tablet 5 mg PO Q8H PRN pain 3 days #9 tabs 11/23/24 tizanidine 4 mg tablet 4 mg PO Q8H PRN muscle spasticity 12/21/24 #30 tabs Allergies Allergy/AdvReac Type Severity Reaction Status Date / Time bee stings Allergy Mild Anaphylaxis Uncoded 01/12/25 02:00 Review of Systems 2 Review of Systems: Yes all other systems are reviewed and are negative [facility] Past Medical History Medical History Right hip pain Coccyx pain Fall Obesity Asthma Healthy adult Surgical History History of cholecystectomy Family History Family History Mother No problems noted. Father No problems noted. Social History Social History Housing: Homeless Patient Tobacco Use Status: Former Tobacco user Tobacco use type: Cigarette Smoked in Last 30 Days: No e-Cigarette/Vaping Use: Currently Using Second Hand Smoke Exposure: Yes Use of substances other than those prescribed or required for medical reasons: No Advance Directives: No Advance Directives Information Provided: Yes Do you have a plan to hurt others: No Plan Patient : No service: No Current occupational status: employed Current occupational exposures/hazards: No Cognitive needs: No Hearing needs: No Vision needs: Yes Physical Exam ED Vital Signs: Vital Signs - 24 hr 01/12/25 01:55 01/12/25 03:39 01/12/25 05:33 Temperature 97.6 F 98.3 F Pulse Rate 59 55 Respiratory Rate 19 17 14 Blood Pressure 132/63 94/56 L Pulse Oximetry 98 97 Oxygen Delivery Method Room Air Room Air 01/12/25 08:00 01/12/25 12:03 Temperature 97.5 F 97.5 F Pulse Rate 59 54 Respiratory Rate 14 18 Blood Pressure 99/63 112/55 L Pulse Oximetry 100 100 Oxygen Delivery Method Room Air Room Air BMI result Body Mass Index 42.1 Const Other: The patient is a 34-year-old woman who was awake and alert. She looks uncomfortable. Orientation/consciousness: patient oriented x3 HENMT Other: Face is symmetrical. Mucous membranes moist. Eyes General: appearance normal, both eyes and all related structures Neck Neck: Yes full ROM Resp Effort & Inspection: normal respiratory effort Auscultation: clear to auscultation bilaterally Cardio Rate: regular rate Rhythm: regular rhythm Heart sounds: S1 normal heart sound present and S2 normal heart sound present GI Other: The patient has definite right upper quadrant tenderness with guarding. Palpation reproduces her pain. Back/Spine/Pelvis Other: No CVA percussion tenderness Skin Other: Skin is dry and unremarkable General skin exam: no rashes or lesions noted Neuro General: patient oriented x3, tone normal, moves all extremities, no focal motor deficits and CN's II-XI intact bilaterally Extrem Other: No peripheral edema, no calf swelling or tenderness Medications Administered Discontinued Medications Generic Name Dose Route Start Last Admin Trade Name Freq PRN Reason Stop Dose Admin Diazepam 5 mg 01/12/25 09:52 01/12/25 09:56 Diazepam 10 Mg/2 Ml Cartridge IVPUSH 01/12/25 09:53 5 mg STAT STA Administration Droperidol 1.25 mg 01/12/25 02:40 01/12/25 02:48 Droperidol 5 Mg/2 Ml Vial IVPUSH 01/12/25 02:41 1.25 mg ONCE ONE Administration Sodium Chloride 1,000 mls @ 999 mls/hr 01/12/25 02:45 01/12/25 05:25 Ns IV 01/12/25 03:45 Infused .Q1H1M KATE Infusion Sodium Chloride 1,000 mls @ 999 mls/hr 01/12/25 03:30 01/12/25 05:25 Ns IV 01/12/25 04:30 Infused .Q1H1M KATE Infusion Sodium Chloride 1,000 mls @ 999 mls/hr 01/12/25 06:30 01/12/25 08:24 Ns IV 01/12/25 07:30 Infused .Q1H1M KATE Infusion Iohexol 85 ml 01/12/25 08:11 01/12/25 08:12 Iohexol 350 Mg/Ml 100 Ml Infus..Btl IV 01/12/25 08:12 85 ml ONCE ONE Administration Ketorolac Tromethamine 10 mg 01/12/25 02:40 01/12/25 02:48 Ketorolac Tromethamine 15 Mg/Ml Vial IVPUSH 01/12/25 02:41 10 mg ONCE ONE Administration Morphine Sulfate 4 mg 01/12/25 03:28 01/12/25 03:39 Morphine Sulfate 4 Mg/Ml Cartridge IM 01/12/25 03:29 4 mg ONCE ONE Administration Protocol Morphine Sulfate 4 mg 01/12/25 08:38 01/12/25 09:09 Morphine Sulfate 4 Mg/Ml Cartridge IVPUSH 01/12/25 08:39 4 mg ONCE ONE Administration Protocol Medical Decision Making Medical Decision Making [facility] Narrative: The patient is a 34-year-old female with a history of a cholecystectomy in 2006. She presents with right upper quadrant pain of 3 days' duration. She is very tender in her right upper quadrant. The pain radiates to her right flank. This distribution of pain suggests the possibility of some kind of biliary obstruction like choledocholithiasis. Renal colic seems less likely based on her description of the location of the pain. There are no pulmonary symptoms associated with this and the pain is not pleuritic. The patient has a unremarkable labs including unremarkable LFTs. The patient was treated with ketorolac and later morphine. She required repeat doses of morphine. A CT of the abdomen and pelvis was done that shows a question of possible biliary ductal obstruction. I reviewed the case with Dr. Lundy of Gastroenterology who recommends an MRCP. The patient will be signed out to my colleague at the end of my shift pending results of an MRCP. Patient's MR CP resolved was reviewed with GI. The results showed stricture of the sphincter of Oddi can not be completely excluded there is no gallstones noted. There is no ductal stone noted. The MRI results was reviewed with GI. Dr. Lundy. Feel comfortable with discharge follow-up with patient's primary and with GI on an outpatient basis if needed. Patient has no worsening of pain. Well appearance. No distress. Wants to leave. Differential Diagnosis Differential Diagnoses: The differential diagnosis associated with the presentation includes Abdominal pain, choledocholithiasis Admission/Observation Consideration of admission/observation: Escalation of care including admission/observation considered Consult Healthcare Provider Management of the patient was discussed with: Specialist Managers (GI) Lab Data MDM Lab Attestation statement: I reviewed the patient's lab results. 01/12/25 02:10 01/12/25 02:10 Labs: Lab Results 01/12/25 01/12/25 Range/Units 02:10 05:32 WBC 8.6 (4.8-10.8) X10*3/uL RBC 4.23 (4.20-5.50) X10*6/uL Hgb 11.9 L (12.0-16.0) g/dl Hct 38.9 (37.0-47.0) % MCV 92.0 (80.0-98.0) fL MCH 28.1 (27.0-33.0) pg MCHC 30.6 L (31.0-35.0) g/dl RDW 13.2 (11.0-16.0) % Plt Count 297 (160-400) X10*3/uL MPV 10.6 (9.4-12.3) fL Immature Gran % (Auto) 0.1 (0.0-0.4) % Neut % (Auto) 53.0 (45-73) % Lymph % (Auto) 35.5 (20-40) % [place]isco[place] % (Auto) 8.3 (2-11) % Eos % (Auto) 2.8 (0-4) % Baso % (Auto) 0.3 (0-2) % Lymph # (Auto) 3.1 (1.2-4.9) X10*3/uL [place] # (Auto) 0.7 (0.1-1.2) X10*3/uL Eos # (Auto) 0.2 (0.0-0.4) X10*3/uL Baso # (Auto) 0.0 (0.0-0.2) X10*3/uL Abs Immat Gran (auto) 0.01 (0.00-0.03) X10*3/uL Absolute Neuts (auto) 4.6 (2.0-8.3) x10*3/uL Absolute Nucleated RBC 0.000 (0.0-0.012) X10*3/uL Nucleated RBC % (auto) 0.0 (0.0-0.2) /100WBC Sodium 142 (135-145) mmol/L Potassium 3.5 (3.3-5.1) mmol/L Chloride 105 (96-108) mmol/L Carbon Dioxide 29 (22-29) mmol/L Anion Gap 12 (12-20) BUN 9 (9-16) mg/dL Creatinine 0.65 (0.5-1.4) mg/dL Estim Creat Clear Calc 140.8 Estimated GFR > 60 Random Glucose 91 (60-115) mg/dL Calcium 9.5 (8.4-10.2) mg/dL Magnesium 1.9 (1.6-2.6) mg/dL Total Bilirubin 0.2 (0.0-1.0) mg/dL AST 18 (5-31) U/L ALT 17 (0-31) U/L Alkaline Phosphatase 88 (39-117) U/L Troponin I High Sens < 2.7 (<3.5-17.0) ng/L C-Reactive Protein 0.23 (< or = 0.50) mg/dL Total Protein 7.3 (6.5-8.0) g/dL Albumin 4.4 (3.5-5.0) g/dL Lipase 12 (8-78) U/L Beta HCG, Quant < 2 mIU/mL Urine Color Yellow Urine Appearance Clear Urine pH 6.0 (5.0-9.0) Ur Specific [place] 1.025 (1.005-1.025) Urine Protein Negative (Neg-Trace) mg/dL Urine Glucose (UA) Negative (Negative) mg/dL Urine Ketones Trace (Negative) mg/dL Urine Blood Negative (Negative) Urine Nitrite Negative (Negative) Ur Leukocyte Esterase Negative (Negative) Urine RBC 0-2 (0-2) /HPF Urine WBC 0-5 (0-5) /HPF Ur Squamous Epith Cells 3-5 (0-2) /HPF Urine Bacteria None Seen (None Seen) Hyaline Casts 0-2 (0-2) /LPF Radiology Impression Discussion of test interpretation with radiology: I have reviewed the radiologist's reading. Chronic Conditions Status post cholecystectomy Social Determinants Patient?s care significantly limited by Social Determinants of Health including: Problems related to primary support group Discharge Plan Discharge Clinical Impression: Abdominal pain Patient Disposition: Home, Self-Care Instructions: Abdominal Pain (ED) Prescriptions: No Action levalbuterol tartrate [Xopenex HFA] 45 mcg/actuation HFA aerosol inhaler 2 puff inhalation Q4-6H PRN (Reason: shortness of breath) Qty: 15 2RF polyethylene glycol 3350 17 gram/dose powder 17 g PO DAILY Qty: 238 0RF meloxicam 15 mg tablet 15 mg PO DAILY Qty: 30 0RF oxycodone 5 mg tablet 5 mg PO Q8H PRN (Reason: pain) 3 Days Qty: 9 0RF Rx Instructions: Partial Fill upon patient request. tizanidine 4 mg tablet 4 mg PO Q8H PRN (Reason: muscle spasticity) Qty: 30 0RF docusate sodium [Colace] 100 mg capsule 100 mg PO BID Qty: 60 0RF Referrals: Maddie Schaeffer NP [Primary Care Provider] - 01/14/25 Reji Lundy MD [Physician] - 01/19/25 Print Language: Stateless
--- NOTE | 2025-01-12 02:37 | PC.NURSE ---
pt biba from home, a&ox4, respirations even and unlabored. pt reports x3 days of upper quadrant pain radiating into right flank, reports some intermittent nausea and vomiting. pt reports gallbladder was removed in 2006. vss. labs obtained, 20g placed in right ac, nsr on tele.
[2025-01-12 02:38] LABS: Troponin-I High Sensitivity < 2.7 ng/L (<3.5-17.0)
[2025-01-12] MEDS: droPERidol 5 MG/2 ML VIAL 1.25 MG IVPUSH (02:48)
[2025-01-12] MEDS: 0.9 % Sodium Chloride 1,000 ML 999 ML IV ×3 (02:48→06:33)
[2025-01-12] MEDS: Ketorolac Tromethamine 15 MG/ML VIAL 10 MG IVPUSH (02:48)
[2025-01-12 02:58] LABS: C Reactive Protein 0.23 mg/dL (< or = 0.50); HCG Quantitative < 2 mIU/mL
[2025-01-12 03:39] VITALS: RESP 17
[2025-01-12] MEDS: Morphine Sulfate 4 MG/ML CARTRIDGE IM (03:39)
[2025-01-12 05:33] VITALS: BP 94/56; PULSE 55; RESP 14; TEMP 36.8; O2SAT 97
[2025-01-12 05:46] LABS: Appearance Urine Clear; Color Urine Yellow; Glucose Urine UA Negative (Negative); Leukocyte Esterase Urine Negative (Negative); Nitrite Urine Negative (Negative); Specific Gravity - Urine 1.025 (1.005-1.025); Urine Blood Negative (Negative); Urine Ketones Trace mg/dL (Negative); Urine Protein Negative (Neg-Trace)
[2025-01-12 05:48] LABS: Bacteria Urine None Seen (None Seen); Hyaline Casts Urine 0-2 /LPF (0-2); RBC Urine 0-2 /HPF (0-2); WBC Urine 0-5 /HPF (0-5)
[2025-01-12 08:00] VITALS: BP 99/63; PULSE 59; RESP 14; TEMP 36.4; O2SAT 100
[2025-01-12] MEDS: iohexoL 350 MG/ML 100 ML INFUS..BTL 85 ML IV (08:12)
[2025-01-12] MEDS: Morphine Sulfate 4 MG/ML CARTRIDGE IVPUSH (09:09)
[2025-01-12] MEDS: diazePAM 10 MG/2 ML CARTRIDGE 5 MG IVPUSH (09:56)
[2025-01-12 12:03] VITALS: BP 112/55; PULSE 54; RESP 18; TEMP 36.4; O2SAT 100
--- NOTE | 2025-01-12 12:30 | PC.NURSE ---
pt expressed desire to have IV taken out because she would like to discharge herself, sts take this out or im going to rip it out. Pt iv removed. Dr Zhao notified and is at bedside now.
--- NOTE | 2025-01-12 12:44 | PC.NURSE ---
pt eloped without discharge vital sign assessment and printout instructions. Dr Zhao aware.
== END 2025-01-12 12:44 | disposition home or self-care (01) ==
PROVIDERS: Emergency Medicine; Emergency Provider Emergency Medicine Emergency Medical Services; PCP Nurse Practitioner
DX: R10.11 Right upper quadrant pain (principal); J45.909 Unspecified asthma, uncomplicated; E66.9 Obesity, unspecified; Z68.41 Body mass index [BMI] 40.0-44.9, adult; Z90.49 Acquired absence of other specified parts of digestive tract; Z87.891 Personal history of nicotine dependence
CPT/HCPCS: 36415; 71045; 74177; 74181; 80053; 81001; 83690; 83735; 84484; 84702; 85025; 86140; 93005; 96361; 96372; 96374; 96375; 99285; J1790; J1885; J2270; J3360; Q9967

== ENCOUNTER → 2025-01-12 02:06 | Outpatient (BNV) | payer OTHER, SELFPAY | PROVIDERS: Emergency Provider Emergency Medicine Emergency Medical Services; PCP Nurse Practitioner; Visit Provider Internal Medicine Cardiovascular Disease | DX: I49.9 Cardiac arrhythmia, unspecified (principal); R00.1 Bradycardia, unspecified | CPT/HCPCS: 93010 ==

== ENCOUNTER → 2025-01-12 03:28 | Outpatient (BNV) | payer OTHER, SELFPAY | PROVIDERS: Emergency Provider Emergency Medicine; PCP Nurse Practitioner; Visit Provider Radiology Diagnostic Radiology | DX: K83.8 Other specified diseases of biliary tract (principal); K83.1 Obstruction of bile duct; R07.9 Chest pain, unspecified | CPT/HCPCS: 71045; 74177; 74181 ==